=== PATIENT | male | born 1955 | race Caucasian/White ===

== ENCOUNTER 2018-01-14 06:25 | Inpatient (IN) ==
[2018-01-14] MEDS ORDERED: Chlorhexidine Gluconate 2% 1 Pack (2 Cloths) TOPICAL ONE (06:46)
[2018-01-14] MEDS ORDERED: Metoprolol Tartrate 25 MG Tablet PO ONE (06:46)
[2018-01-14] MEDS ORDERED: [UNRECOGNIZED DRUG - OTHER] IV.SIG PRN ×2 (06:53)
[2018-01-14] MEDS ORDERED: CEFAZOLIN IV.SIG PRN ×2 (06:53)
[2018-01-14] MEDS ORDERED: Levofloxacin 500 mg Premix Inj 500 MG/100 ML PIGGYBACK IV.SIG PRN (06:57)
[2018-01-14] MEDS ORDERED: Sodium Chlor 0.9% Inj 500 ML IV.SIG SCH (07:00)
[2018-01-14] MEDS ORDERED: Sugammadex Inj 200 MG/2 ML Vial IV.PUSH ONE (08:20)
[2018-01-14] MEDS ORDERED: Lidocaine PF 1% Inj 5 ML Syringe INFILTRATN ONE (08:53)
[2018-01-14] MEDS ORDERED: Phenylephrine/NS 1000 MCG/10ML Syringe IV.PUSH ONE (08:53)
--- NOTE | 2018-01-14 09:30 | P.OP ---
- Preoperative Diagnosis (1) Crohns disease - Postoperative Diagnosis (1) Crohns disease Date of procedure: 01/14/18 Anesthesia: other (General LMA) Surgeon: Koko Dunlap DO Estimated blood loss (mL): 0 Operation and Findings: 62-year-old male who elected to undergo bowel resection by Dr. Green. Request were made for bilateral ureteral catheter insertion. Patient was placed in the dorsal lithotomy position, prepped and draped in usual sterile fashion, received preprocedure antibiotics and general endotracheal tube anesthesia was administered. 22 Sinhala cystoscope was inserted in the bladder guerrero cystoscopy did not reveal any abnormalities. The left ureteral orifice was identified and 5 internal catheter was inserted in the left ureteral orifice without difficulty. This was repeated on the right side without difficulty. The catheters were attached to the Montiel catheter which was inserted without difficulty. The patient tolerated the procedure well.
[2018-01-14] MEDS ORDERED: Dextrose 5%/NaCl 0.9% Inj 1,000 ML IV.CONT SCH (12:45)
[2018-01-14] MEDS ORDERED: fentaNYL Citrate Inj 100 MCG/2 ML Ampul ONE (12:49)
[2018-01-14] MEDS ORDERED: Morphine Inj 30 MG/30 ML PCA.VIAL PCA ONE (13:09)
[2018-01-14] MEDS: Dextrose 5%/NaCl 0.9% Inj 1,000 ML IV.SIG SCH (13:25)
[2018-01-14] MEDS ORDERED: *morphine SULFATE 10 MG/ML PERIprocedure ONLY ONE (13:27)
[2018-01-14 13:32] LABS: Baso # (Auto) 0.1 th/mm3 (0.0-0.2); Baso % (Auto) 0.4 % (0.0-2.0); Eos % (Auto) 0.3 % (0.0-4.0); Hematocrit 43.1 % (39.0-51.0); Hemoglobin 14.8 gm/dL (13.0-17.0); Lymph # (Auto) 1.3 th/mm3 (1.0-4.8); Lymph % (Auto) 9.3 % (9.0-44.0); Mean Corpuscular HGB Conc 34.2 % (32.0-36.0); Mean Corpuscular Hemoglobin 32.6 pg (27.0-34.0); Mean Corpuscular Volume 95.3 fL (80.0-100.0); Mean Platelet Volume 8.1 fL (7.0-11.0); Mono # (Auto) 0.2 th/mm3 (0.0-0.9); Mono % (Auto) 1.7 % (0.0-8.0); Neut # (Auto) 12.2 th/mm3 (1.8-7.7); Neut % (Auto) 88.3 % (16.0-70.0); Platelet Count 173 th/mm3 (150-450); Red Blood Count 4.53 mil/mm3 (4.50-5.90); Red Cell Distribution Width 13.3 % (11.6-17.2); White Blood Count 13.8 th/mm3 (4.0-11.0)
[2018-01-14 14:02] LABS: Anion Gap 10 meq/L (5-15); Blood Urea Nitrogen 8 mg/dL (7-18); Carbon Dioxide 25.7 meq/L (21.0-32.0); Chloride 107 meq/L (98-107); Glomerular Filtration Rate Greater Than 89 mL/min (>89); Glucose,Random 130 mg/dL (74-106); Potassium 3.6 meq/L (3.5-5.1); Sodium 143 meq/L (136-145)
[2018-01-14] MEDS ORDERED: Morphine Inj 30 MG/30 ML PCA.VIAL PCA PRN (14:50)
[2018-01-14] MEDS ORDERED: Naloxone Inj 0.4 MG/ML Vial IV.PUSH PRN (14:50)
--- NOTE | 2018-01-14 15:16 | MP ---
cc: Doris Green MD, Jose I MD DATE OF OPERATION: 01/14/2018 PREOPERATIVE DIAGNOSIS: Crohn ileocolitis with terminal ileum stricture. POSTOPERATIVE DIAGNOSIS: Crohn ileitis with a terminal ileum stricture. PROCEDURE: Robotic small bowel resection with reanastomosis. Extensive lysis of adhesions. SURGEON: Doris Green MD RADIO TIME BUYER: Azael. ANESTHESIA: General per ET tube. ESTIMATED BLOOD LOSS: Less than 50 mL OPERATIVE INDICATIONS: The patient is a 62-year-old male with a long history of Crohn's disease and radiographic evidence of a long stricture toward the end of the small intestine. OPERATIVE FINDINGS: The patient had some adhesions of omentum to the anterior abdominal wall as well as adhesions of the sigmoid colon to the small bowel mesentery on the right. In addition, he had some adhesions posteriorly of the small bowel to the posterior peritoneum. The area of stricture was located just above the very end of the terminal ileum and indeed he had a good 15 cm of terminal ileum that was soft and normal bowel. The proximal bowel was run from the stricture proximally to the ligament of Treitz and there was really no sign of any other areas of Crohn's disease, fat wrapping or other concerning abnormalities. The colon was visualized from the cecum around the transverse colon. I did not get a good look at the splenic flexure, but the remainder of the colon down through the descending colon, sigmoid, and proximal rectum all appeared without disease. Upon opening the bowel, the patient had multiple sequential strictures in this area with thickening of the bowel wall and cobblestoning, with loss of the normal architecture. The liver appeared normal, as did the gallbladder. OPERATIVE COURSE: The patient was brought to the operating room, and placed in the supine position. After induction of general anesthesia, the patient was placed in Danis stirrups and all bony prominences were carefully padded. Dr. Dunlap came in and performed cystoscopy with placement of bilateral ureteral catheters. Please see his operative note for details. The patient was then taken out of Danis stirrups and placed in the prone position and all bony prominences were carefully padded. The bed was broken slightly. The skin of the anterior abdominal wall was then prepped and draped in the usual sterile fashion. The trocar sites were then planned out as follows: The camera port, 2 cm below and to the left of the umbilicus. The #3, 10/12 port, just inside the right anterior superior iliac spine. The #2 port just to the left of the suprapubic area, and the #1 port just under the left costal margin. The #5 assist port in the left anterior axillary line, equal distance between the #1 and the camera port. The #1 port was placed first, using a #5 trocar as I was concerned about the status of his Crohn's disease. This port was placed under the left costal margin, under direct vision using the laparoscope. CO2 insufflation was then undertaken and a brief abdominal survey was performed. The patient was noted to have adhesions of the omentum to the anterior abdominal wall in the cephalad area, but no other abnormalities that would preclude the robotic approach. The remainder of the ports were then placed under direct vision. Using the laparoscope, the omentum was carefully dissected free from the undersurface of the anterior abdominal wall. The patient was hydroplaned with head down and slightly to the right and the small bowel was brought up out of the pelvis. The area of fat wrapping and thickening of the mesentery was clearly identified in the end part of the ileum, but the final 10 cm - 15 cm of ileum was noted to be fairly clear of disease. There was noted to be some adhesions between the sigmoid colon and the terminal ileum mesentery. The appendix was also wrapped up and around the terminal ileum as well. The robot was then docked. Initially, the adhesions of the sigmoid colon to the small bowel mesentery were dissected free until we had freed that up. Then the appendix was carefully dissected free as well, using the robotic approach. Eventually, this allowed visibility of the mesentery to the ascending colon and terminal ileum. This was carefully dissected free from the posterior peritoneum, up to the level of the duodenum. The duodenum was then carefully dissected free from the undersurface of the mesentery. Dissection then continued, freeing the cecum and ascending colon from the lateral peritoneal attachments until we had full mobility of the small bowel and the colon up to the level of the hepatic flexure, but not around it. There was a small amount of bleeding noted from the beefy mesentery surrounding the area of Crohn's. The small bowel was then run, beginning at the stricture and proximally to the ligament of Treitz with no sign of any other areas of Crohn's noted and the colon was visualized; everything except for the apex of the splenic flexure. He was noted to have a Meckel's diverticulum proximal to the diseased small bowel. Liver and gallbladder were also noted to be normal as well at this point. After evaluation, I felt that it was time to proceed with the extracorporeal portion of the procedure and the robot was undocked. A 10 cm incision was made just below the umbilicus, incorporating our camera port. Using electrocautery, dissection was carried down to the fascia of the anterior abdominal wall, which was split the length of the skin incision. The fibers of the rectus abdominis muscle were then gently teased apart and stretched open and the posterior fascia/peritoneum was then also incised the length of the skin incision. A wound protector was then placed. The strictured area of small bowel was then gently prolapsed out through the incision and examined. This was a distance of approximately 12 cm - 15 cm in length and was quite thickened with lots of bowel wrapping and injection as well. A site was chosen for proximal and distal division of the bowel. The distal division was just about 12 cm - 15 cm proximal to ileocecal valve. The mesentery was opened and a load of the DEIDRA 55 blue stapler was placed across the bowel at this level, fired and removed. A site was then chosen for distal division of the bowel, just proximal to the area of stricturing. The mesentery was opened at this area. A reload of the stapler was placed across the bowel at this level and the bowel was divided. However, after reevaluating, the Meckel's diverticulum was a little too close and I did not want to have to do an anastomosis into the Meckel's diverticulum, so I did elect to take an additional 4 cm - 5 cm of bowel. I went up above the level of the Meckel's diverticulum and the mesentery was opened at this level. A reload of the stapler was placed across the bowel at this level. The intervening mesentery was serially divided and ligated, using 0-Vicryl ties. There were 2 or 3 areas where I had to add suture ligature due to the thickened mesentery from the Crohn's disease. Attention was then turned to the appendix, which was gently dissected free from the mesentery. Because it had been fairly adherent, there were some areas of concern and so I did elect to proceed with an appendectomy as well. This was dissected free to the base of the cecum. The appendiceal vessel was divided and ligated with 0-Vicryl ties. A TX30 stapling device was placed across the base of the appendix and the appendix was amputated, taken to a back table, and sent for pathology. A single pursestring of 3-0 Vicryl was placed around the stump and this was inverted in and the pursestring was secured. Attention was then returned to the small bowel. The antimesenteric corners of the staple lines were then removed. One limb of gastrointestinal staple was placed down each limb of the bowel. This was closed along the antimesenteric border, and fired, thus creating an enteroenterostomy. The resulting enterotomy was closed transversely with a TX 60 stapling device. Two stay sutures were placed at the distal end of the anastomosis using 3-0 Vicryl. The anastomosis was palpated and found to be widely patent and appeared pink and healthy. The mesenteric defect was closed in running fashion using 3-0 Vicryl. The bowel was then gently prolapsed back into the peritoneal cavity and the peritoneal cavity was copiously irrigated with warm normal saline until return of clear fluid. The fascia at the right lower quadrant 10/ 12 trocar site was closed from the incision in an interrupted fashion using #1-PDS. Seprafilm was placed over the bowel and then again over the omentum. The posterior fascia at the transverse incision was closed in a running fashion using #1 PDS and the anterior fascia was closed in a running fashion using #1 PDS. The wound was copiously irrigated with warm normal saline and the skin was closed in a running subcuticular fashion using 3-0 Vicryl. The remainder of the port sites were then closed in an interrupted subcuticular fashion using 3-0 Vicryl. Steri-Strips and sterile dressing were then applied. The left ureteral stent was then removed. All sponge, needle and instrument counts were correct and the patient was returned to the Postanesthesia Care Unit in stable condition. MD MARVEL Leavitt/aston/kami , 12:45 PM , 01:07 PM CHARLEE
[2018-01-14] MEDS: Famotidine PF Inj 20 MG/2 ML Vial IV.PUSH SCH (21:29)
[2018-01-14] MEDS: Heparin - SQ 10,000 UNITS/ML Vial SQ SCH (21:30)
[2018-01-15] MEDS: Dextrose 5%/NaCl 0.9% Inj 1,000 ML IV.SIG SCH ×5 (01:00→23:26)
[2018-01-15 04:46] LABS: Baso % (Auto) 0.3 % (0.0-2.0); Hematocrit 38.9 % (39.0-51.0); Hemoglobin 13.6 gm/dL (13.0-17.0); Lymph # (Auto) 1.3 th/mm3 (1.0-4.8); Lymph % (Auto) 11.9 % (9.0-44.0); Mean Corpuscular HGB Conc 34.8 % (32.0-36.0); Mean Corpuscular Hemoglobin 33.1 pg (27.0-34.0); Mean Corpuscular Volume 95.1 fL (80.0-100.0); Mono # (Auto) 0.7 th/mm3 (0.0-0.9); Neut # (Auto) 8.8 th/mm3 (1.8-7.7); Neut % (Auto) 81.8 % (16.0-70.0); Platelet Count 155 th/mm3 (150-450); Red Blood Count 4.09 mil/mm3 (4.50-5.90); Red Cell Distribution Width 13.3 % (11.6-17.2); White Blood Count 10.8 th/mm3 (4.0-11.0)
[2018-01-15 05:03] LABS: Potassium 3.6 meq/L (3.5-5.1)
--- NOTE | 2018-01-15 08:36 | P.PN ---
Subjective Interval history: POD#1 s/p robotic assisted sbr, appx sore, nausea last pm, none now Physical Exam Vital signs: Vital Signs 01/14/18 12:42 01/14/18 13:00 01/14/18 13:15 Temperature 97.5 F L Pulse Rate 79 75 76 Respiratory Rate 23 18 17 Blood Pressure 181/79 H 161/69 H 166/72 H Pulse Oximetry 99 100 100 01/14/18 13:30 01/14/18 13:45 01/14/18 13:56 Temperature Pulse Rate 70 74 Respiratory Rate 21 19 16 Blood Pressure 169/73 H 159/69 H Pulse Oximetry 100 100 01/14/18 14:00 01/14/18 15:00 01/14/18 15:13 Temperature 97.5 F L 98.7 F Pulse Rate 76 82 Respiratory Rate 16 18 18 Blood Pressure 155/68 H 166/78 H Pulse Oximetry 100 97 01/14/18 16:00 01/14/18 19:00 01/14/18 20:00 Temperature 101.9 F H Pulse Rate 79 91 H 83 Respiratory Rate 16 Blood Pressure 150/74 H Pulse Oximetry 94 L 01/14/18 23:00 01/15/18 03:00 01/15/18 04:10 Temperature 100.3 F H 99.9 F H Pulse Rate 74 72 71 Respiratory Rate 16 16 Blood Pressure 126/58 L 156/76 H Pulse Oximetry 95 96 Intake & Output 01/14/18 01/15/18 01/15/18 18:59 06:59 18:59 Intake Total 4240 / 4240 1340 / 1340 Output Total 1195 / 1195 1050 / 1050 Balance 3045 / 3045 290 / 290 Weight 65.3 kg Intake: IV 1300 / 1300 1100 / 1100 D5W/Normal Saline Inj 1,000 ML 1000 / 1000 @ 125 mls/hr IV.SIG .Q8H JASEN Rx #:[id number] LR 1000 mL Inj 1,000 ML @ 30 1000 / 1000 mls/hr IV.SIG .Q24H JASEN Rx#: [id number] Levaquin 500 mg Premix Inj 500 100 / 100 mg In 100 ml @ 100 mls/hr IV. SIG BRIM FLEXER PRN Rx#:[id number] Flagyl 500 MG Inj 100 ML @ 200 200 / 200 100 / 100 mls/hr IV.SIG Q8H JASEN Rx#: [id number] Oral 240 / 240 240 / 240 Anesthesia Amount 2700 / 2700 Output: Urine 700 / 700 1050 / 1050 Estimated Blood Loss 20 / 20 Urine Amount (Catheter) 475 / 475 Indwelling Urethral Catheter 475 / 475 Other: Weight On Admission 65.3 kg - Routine Abdominal Exam Comments: Abdomen soft, nondistended, tender Dressings c/d/i - Urinary Catheter Management Indwelling Urethral Catheter Cath placed during this visit: yes Reason for continuing: Hourly intake/output Insertion date: 01/14/18 Results - Labs CBC & Chem 7: 01/15/18 04:29 01/15/18 04:29 Laboratory Results - last 24 hr 01/14/18 01/14/18 01/15/18 13:10 13:10 04:29 WBC 13.8 H 10.8 RBC 4.53 4.09 L Hgb 14.8 13.6 Hct 43.1 38.9 L MCV 95.3 95.1 MCH 32.6 33.1 MCHC 34.2 34.8 RDW 13.3 13.3 Plt Count 173 155 MPV 8.1 8.0 Neut % (Auto) 88.3 H 81.8 H Lymph % (Auto) 9.3 11.9 [place] % (Auto) 1.7 6.0 Eos % (Auto) 0.3 0.0 Baso % (Auto) 0.4 0.3 Neut # (Auto) 12.2 H 8.8 H Lymph # (Auto) 1.3 1.3 [place] # (Auto) 0.2 0.7 Eos # (Auto) 0.0 0.0 Baso # (Auto) 0.1 0.0 WBC Differential . . Differential Comment Auto diff final Auto diff final Sodium 143 Potassium 3.6 Chloride 107 Carbon Dioxide 25.7 Anion Gap 10 BUN 8 Creatinine 0.65 Estimated GFR Greater than 89 Random Glucose 130 H Calcium 8.0 L 01/15/18 04:29 WBC RBC Hgb Hct MCV MCH MCHC RDW Plt Count MPV Neut % (Auto) Lymph % (Auto) [place] % (Auto) Eos % (Auto) Baso % (Auto) Neut # (Auto) Lymph # (Auto) [place] # (Auto) Eos # (Auto) Baso # (Auto) WBC Differential Differential Comment Sodium 144 Potassium 3.6 Chloride 111 H Carbon Dioxide 26.0 Anion Gap 7 BUN 9 Creatinine 0.90 Estimated GFR 85 L Random Glucose 146 H Calcium 8.0 L Assessment and Plan - Assessment (1) Stricture of small intestine Code(s): K56.699 - Other intestinal obstruction unspecified as to partial versus complete obstruction Status: Acute (2) Crohns disease Code(s): K50.90 - Crohn's disease, unspecified, without complications Status: Acute - Plan Discussed Condition With: Mobilize D/C stent/joshua Add nicotine patch
[2018-01-15] MEDS ORDERED: Levofloxacin 500 mg Premix Inj 500 MG/100 ML PIGGYBACK IV.SIG ONE (09:00)
[2018-01-15] MEDS: Famotidine PF Inj 20 MG/2 ML Vial IV.PUSH SCH ×2 (09:26→20:01)
[2018-01-15] MEDS: Heparin - SQ 10,000 UNITS/ML Vial SQ SCH ×2 (09:27→20:01)
[2018-01-16] MEDS: Dextrose 5%/NaCl 0.9% Inj 1,000 ML IV.SIG SCH ×2 (06:01→09:59)
[2018-01-16 06:10] LABS: Baso % (Auto) 0.3 % (0.0-2.0); Eos % (Auto) 0.5 % (0.0-4.0); Hematocrit 36.4 % (39.0-51.0); Hemoglobin 13.1 gm/dL (13.0-17.0); Lymph # (Auto) 1.7 th/mm3 (1.0-4.8); Lymph % (Auto) 26.4 % (9.0-44.0); Mean Corpuscular Hemoglobin 33.7 pg (27.0-34.0); Mean Corpuscular Volume 93.6 fL (80.0-100.0); Mean Platelet Volume 8.3 fL (7.0-11.0); Mono # (Auto) 0.3 th/mm3 (0.0-0.9); Mono % (Auto) 5.3 % (0.0-8.0); Neut # (Auto) 4.4 th/mm3 (1.8-7.7); Neut % (Auto) 67.5 % (16.0-70.0); Platelet Count 128 th/mm3 (150-450); Red Blood Count 3.89 mil/mm3 (4.50-5.90); Red Cell Distribution Width 13.1 % (11.6-17.2); White Blood Count 6.5 th/mm3 (4.0-11.0)
[2018-01-16 06:39] LABS: Anion Gap 7 meq/L (5-15); Blood Urea Nitrogen 6 mg/dL (7-18); Calcium 7.9 mg/dL (8.5-10.1); Carbon Dioxide 28.3 meq/L (21.0-32.0); Chloride 110 meq/L (98-107); Glomerular Filtration Rate Greater Than 89 mL/min (>89); Glucose,Random 105 mg/dL (74-106); Potassium 3.2 meq/L (3.5-5.1); Sodium 145 meq/L (136-145)
[2018-01-16] MEDS: Heparin - SQ 10,000 UNITS/ML Vial SQ SCH ×2 (09:17→20:38)
[2018-01-16] MEDS: Famotidine PF Inj 20 MG/2 ML Vial IV.PUSH SCH ×2 (09:18→20:38)
--- NOTE | 2018-01-16 11:13 | P.PN ---
Subjective Interval history: POD#2 s/p robotic sbr comfortable Physical Exam Vital signs: Vital Signs 01/15/18 12:00 01/15/18 13:00 01/15/18 14:00 Temperature Pulse Rate 82 83 83 Respiratory Rate Blood Pressure Pulse Oximetry 01/15/18 15:00 01/15/18 16:00 01/15/18 17:00 Temperature 98.3 F Pulse Rate 81 76 76 Respiratory Rate 17 Blood Pressure 168/81 H Pulse Oximetry 97 01/15/18 18:00 01/15/18 19:00 01/15/18 20:00 Temperature 98.7 F Pulse Rate 81 72 79 Respiratory Rate 18 Blood Pressure 168/87 H Pulse Oximetry 97 01/15/18 21:00 01/15/18 22:00 01/15/18 22:56 Temperature Pulse Rate 78 76 71 Respiratory Rate Blood Pressure Pulse Oximetry 01/15/18 22:57 01/16/18 00:00 01/16/18 01:00 Temperature 98.8 F Pulse Rate 74 74 69 Respiratory Rate 20 Blood Pressure 164/83 H Pulse Oximetry 96 01/16/18 02:00 01/16/18 03:00 01/16/18 03:55 Temperature 98 F Pulse Rate 67 75 70 Respiratory Rate 18 Blood Pressure 157/75 H Pulse Oximetry 96 01/16/18 05:00 01/16/18 05:53 01/16/18 07:00 Temperature 98.3 F Pulse Rate 68 70 69 Respiratory Rate 17 Blood Pressure Pulse Oximetry 96 01/16/18 08:00 01/16/18 09:00 01/16/18 10:00 Temperature Pulse Rate 69 71 68 Respiratory Rate Blood Pressure Pulse Oximetry Intake & Output 01/15/18 01/16/18 01/16/18 18:59 06:59 18:59 Intake Total 3160 / 3160 1959 / 1960 1000 / 1000 Output Total 1200 / 1200 1400 / 1400 Balance 1959 / 1960 560 / 560 1000 / 1000 Weight 66.5 kg Intake: IV 2200 / 2200 1000 / 1000 1000 / 1000 D5W/Normal Saline Inj 1,000 ML 2000 / 2000 1000 / 1000 1000 / 1000 @ 125 mls/hr IV.SIG .Q8H JASEN Rx #:[id number] Levaquin 500 mg Premix Inj 500 100 / 100 mg In 100 ml @ 100 mls/hr IV. SIG ONCE ONE Rx#:[id number] Flagyl 500 MG Inj 100 ML @ 200 100 / 100 mls/hr IV.SIG Q8H JASEN Rx#: [id number] Oral 960 / 960 960 / 960 Output: Urine 1400 / 1400 Urine Amount (Catheter) 1200 / 1200 Indwelling Urethral Catheter 1200 / 1200 Other: Date of Last Bowel Movement 01/13/18 01/13/18 - Routine Abdominal Exam Comments: soft, nondistended, tender wounds clean - Urinary Catheter Management Indwelling Urethral Catheter Cath placed during this visit: yes Reason for continuing: Hourly intake/output Insertion date: 01/14/18 Results - Labs CBC & Chem 7: 01/16/18 05:33 01/16/18 05:33 Laboratory Results - last 24 hr 01/16/18 01/16/18 05:33 05:33 WBC 6.5 RBC 3.89 L Hgb 13.1 Hct 36.4 L MCV 93.6 MCH 33.7 MCHC 36.0 RDW 13.1 Plt Count 128 L MPV 8.3 Prelim Diff (Auto) Slide review pending Neut % (Auto) 67.5 Lymph % (Auto) 26.4 [place] % (Auto) 5.3 Eos % (Auto) 0.5 Baso % (Auto) 0.3 Neut # (Auto) 4.4 Lymph # (Auto) 1.7 [place] # (Auto) 0.3 Eos # (Auto) 0.0 Baso # (Auto) 0.0 WBC Differential . Diff Scan Auto diff confirmed Differential Comment . Sodium 145 Potassium 3.2 L Chloride 110 H Carbon Dioxide 28.3 Anion Gap 7 BUN 6 L Creatinine 0.67 Estimated GFR Greater than 89 Random Glucose 105 Calcium 7.9 L Assessment and Plan - Assessment (1) Stricture of small intestine Code(s): K56.699 - Other intestinal obstruction unspecified as to partial versus complete obstruction Status: Acute (2) Crohns disease Code(s): K50.90 - Crohn's disease, unspecified, without complications Status: Acute Plan: Advance diet D/C SPA EXPERIENCE COORDINATOR, HL IV Mobilize
[2018-01-17] MEDS: Famotidine PF Inj 20 MG/2 ML Vial IV.PUSH SCH ×2 (07:31→08:12)
[2018-01-17] MEDS: Heparin - SQ 10,000 UNITS/ML Vial SQ SCH ×2 (07:31→08:12)
--- NOTE | 2018-01-17 14:09 | P.PN ---
Subjective Interval history: POD#3 s/p SBR comfortable, wants to go home Physical Exam Vital signs: Vital Signs 01/16/18 14:50 01/16/18 18:57 01/16/18 19:04 Temperature 98 F 99.1 F Pulse Rate 76 71 Respiratory Rate 16 20 20 Blood Pressure 173/89 H 147/78 H Pulse Oximetry 96 96 01/16/18 23:00 01/17/18 02:46 01/17/18 07:00 Temperature 98.3 F 98.8 F 98.7 F Pulse Rate 68 67 69 Respiratory Rate 18 16 17 Blood Pressure 134/74 141/81 H 169/81 H Pulse Oximetry 96 96 96 01/17/18 08:08 01/17/18 11:51 Temperature Pulse Rate Respiratory Rate 15 15 Blood Pressure Pulse Oximetry Intake & Output 01/16/18 01/17/18 01/17/18 18:59 06:59 18:59 Intake Total 2020 / 2020 720 / 720 Output Total 1350 / 1350 1200 / 1200 Balance 670 / 670 -480 / -480 Weight 66.7 kg Intake: IV 1020 / 1020 D5W/Normal Saline Inj 1,000 ML 1020 / 1020 @ 125 mls/hr IV.SIG .Q8H JASEN Rx #:[id number] Oral 1000 / 1000 720 / 720 Output: Urine 1350 / 1350 1200 / 1200 Other: Date of Last Bowel Movement 01/13/18 01/13/18 - Routine Abdominal Exam Comments: Abdomen soft, nondistended, tender Wounds clean - Urinary Catheter Management Indwelling Urethral Catheter Cath placed during this visit: yes Reason for continuing: Hourly intake/output Insertion date: 01/14/18 Results - Labs CBC & Chem 7: 01/16/18 05:33 01/16/18 05:33 Assessment and Plan - Assessment (1) Stricture of small intestine Code(s): K56.699 - Other intestinal obstruction unspecified as to partial versus complete obstruction Status: Acute (2) Crohns disease Code(s): K50.90 - Crohn's disease, unspecified, without complications Status: Acute Plan: Doing well Home today Followup 3 weeks
--- NOTE | 2018-02-15 10:49 | MD ---
cc: Doris Green MD DATE OF DISCHARGE: 01/17/2018 ADMISSION DIAGNOSIS: Crohn's disease. DISCHARGE DIAGNOSIS: Crohn's disease. PROCEDURES: 1. Cystoscopy with placement of bilateral ureteral catheters. 2. Robotic small bowel resection with reanastomosis and extensive lysis of adhesions. HOSPITAL COURSE: The patient is a 62-year-old male with a long history of Crohn's disease and evidence of a long stricture toward the end of the small intestine. He was admitted to the hospital on 01/14/2018 after an outpatient bowel prep. He was taken to the operating room where he underwent the above-named procedures. Postoperatively, he did well with rapid return of bowel and bladder function. He was discharged home on postoperative day #3 with instructions to followup with myself in the office. Final pathology was not available at the time of discharge. Doris Green MD KW/astno , 10:28 AM , 10:35 AM MTDD
== END 2018-01-17 15:16 | disposition home or self-care (01) ==
LOC: HSDC 06:25 → EDSTATUS 08:30 → HCPC 12:38
PROVIDERS: ADMIT Colon & Rectal Surgery; ATTEND Colon & Rectal Surgery